=== PATIENT | female | born 1940 | race Caucasian/White ===

== ENCOUNTER 2016-09-18 13:04 | Day surgery (SDC) | payer MEDICARE ==
[~2016-09-18] VITALS: Ht 166.4 cm; Wt 75.0 kg
--- NOTE | 2016-09-18 07:29 | PCM.HPANE ---
Patient Data Surgeon Admitting Provider: Attending Provider:Bronson Albarran MD Primary Care Physician:Xin Lou PA-C Other Provider:Nila Haynesingham Anesthesia Reason for Visit Diarrhea Ht/WT & BMI Body Mass Index Allergies Coded Allergies: No Known Allergies (Unverified , 09/18/16) Medications Reported Medications Montelukast 10 Mg Sdoile38 Mg PO HS Ref 0 09/16/16 Atorvastatin (Lipitor)10 Mg Tab10 Mg PO DAILY Ref 0 09/16/16 Gabapentin 600 Mg Btdnid888 Mg PO TID Ref 0 09/16/16 Celecoxib (Celebrex)200 Mg Yoyphaf702 Mg PO BID #30 CAPSULE Ref 0 09/16/16 Dicyclomine (Bentyl)10 Mg Cjboxqj61 Mg PO QID 09/16/16 Allopurinol 100 Mg Insvqd372 Mg PO TID Ref 0 09/16/16 Acetaminophen 325 Mg Iuvdfaf301 Mg PO QID PRN For Pain 09/16/16 Stop/Bang Risk Assessment Category Category 1A: Patient has history of documented sleep apnea, and HAS NOT received any narcotic, sedative or anesthesia administration during this stay. Category 1B: Patient has history of documented sleep apnea, and HAS received any narcotic , sedative or anesthesia administration during this stay Category 2: Patient has SUSPECTED Obstructive Sleep Apnea, and HAS received any narcotic , sedative or anesthesia administration during this stay. Category 3: Patient has SUSPECTED Obstructive Sleep Apnea and HAS NOT received narcotic, sedative or anesthesia administration during this stay. Category 4: Outpatient in Procedural Areas with known sleep apnea or who screen positive for High Risk via the STOP/BANG questionnaire. Exam Exam General Appearance: Alert, Oriented X3, Cooperative, No Acute Distress HEENT/AIRWAY: MP 2 Lungs: Clear to Auscultation, Normal Air Movement Heart: Exam Unremarkable, Regular Rate/Rhythm, No Murmurs/Rubs/Gallops Plan Impression Patient chart reviewed, patient interviewed and anesthestic plan with risks, benefits, and alternatives discussed, and informed consent obtained. ASA Physical Status: ASA2 Mod Systemic Disease Anesthetic Plan: MAC Bene/Risks/Altern/Consents: Yes HP Complete Prior to Induction: Yes Angela West MD Sep 18, 2016 07:29
[~2016-09-18 13:04] MED LIST: ACET325C PO; ATRV10T PO; CELE200C PO; DICY10CA56 PO; GABA600T2 PO; Lactated Ringer's 1,000 ML IV ONE; MONT10TA23 PO; ZYL100 PO
[2016-09-18] MEDS ORDERED: Propofol 10,000 mCg/mL 20 mL Inj ONE (13:05)
[2016-09-18] MEDS ORDERED: fentaNYL-PF 50 mCg/mL 2 mL Inj ONE (13:05)
[2016-09-18 13:17] VITALS: BP 148/86; PULSE 76; RESP 15; O2SAT 98
[2016-09-18] MEDS ORDERED: Lactated Ringer's 1,000 ML IV SCH (13:58)
--- NOTE | 2016-09-18 13:58 | PCM.ANEP1 ---
Post Anesthesia Phase 1 PACU Phase 1 Assessment Vital Signs Vital Signs Date Time Temp Pulse Resp B/P Pulse Ox O2 Delivery O2 Flow Rate FiO2 09/18/16 13:17 37.1 76 15 148/86 98 Room Air Anesthetic Administered: MAC Level of Alertness: Awake, talking ALVARADO's with Equal Strength: Yes Pain: No Nausea or Vomiting: No Oxygen Delivery: Nasal Cannula Lungs: Clear to Auscultation, Normal Air Movement Angela West MD Sep 18, 2016 13:58
--- NOTE | 2016-09-18 13:58 | PCM.ANEP2 ---
Post Anesthesia Evaluation ASA/CMS Post Anesthesia VS in Patient's Normal Range?: Yes Resp Stable; Airway Patent?: Yes CV Function & Hydration Stable: Yes Mental Status Recovered?: Yes Pain control Satisfactory?: Yes N/V Control Satisfactory?: Yes Angela West MD Sep 18, 2016 13:58
[2016-09-18] MEDS ORDERED: Ondansetron 2 mg/mL 2 mL Inj IVPUSH PRN (14:00)
[2016-09-18] MEDS ORDERED: MetoCLOpramide 5 mg/mL 2 mL Inj IVPUSH PRN (14:00)
[2016-09-18 14:02] VITALS: BP 129/69; PULSE 66; RESP 14; O2SAT 98
[2016-09-18 14:09] VITALS: BP 128/82; PULSE 66; RESP 10; O2SAT 98
--- NOTE | 2016-09-18 14:31 | ENDO ---
[address] [address] ENDOSCOPY PROCEDURE PATIENT: IGOR GALVEZ : 1940 MR#: [id number] ADMIT: 09/18/2016 JOB ID: [id number] DATE OF SERVICE: 09/18/2016 TYPE OF OPERATION: Colonoscopy, status post biopsy. PREOPERATIVE DIAGNOSIS(ES): Diarrhea. POSTOPERATIVE DIAGNOSIS(ES): 1. A 2 mm cecal polyp, removed by cold biopsy forceps. 2. Severe sigmoid diverticulosis. 3. Small internal hemorrhoids. ANESTHESIA: Monitored anesthesia care. COMPLICATIONS: None. BLOOD LOSS: Minimal. DESCRIPTION OF PROCEDURE: After risks and benefits were explained to the patient, informed consent was obtained. After anesthesia administered, colonoscope was then inserted from the rectum to the terminal ileum. Mucosa carefully examined. Prep of the patient was fair. After the procedure was done, the scope was withdrawn and the procedure terminated. FINDINGS: Upon inspection of the anus, no masses, hemorrhoids, ulcers, or fissures that were seen. Throughout the entire examination, there was a 2 mm cecal polyp, removed by cold biopsy forceps. There was severe sigmoid diverticulosis and tortuous sigmoid colon. No other polyps or masses were seen. Biopsies taken from terminal ileum and random colon. Retroflexion showed small internal hemorrhoids. IMPRESSION: 1. Small internal hemorrhoids. 2. Severe sigmoid diverticulosis with tortuous sigmoid. 3. A 2 mm cecal polyp, removed by cold biopsy forceps. RECOMMENDATION: Await pathology results. Follow up in GI clinic as needed.
--- NOTE | 2016-09-23 10:19 | PATH ---
SURGICAL PATHOLOGY Attending Physician:Bronson Albarran MD CASE STATUS: Signed Out PATIENT NAME: IGOR GALVEZ PID: [id number] : 1940 DATE COLLECTED:09/18/2016 00:00 SPECIMEN: 1: Colon, Biopsy 2: Ileum, Biopsy 3: Colon, Biopsy CLINICAL HISTORY: 1).CECUM POLYP 2).TERMINAL ILEUM BIOPSY 3).RANDOM COLON BIOPSY FINAL DIAGNOSIS: 1.CECUM POLYP: TUBULAR ADENOMA. 2.TERMINAL ILEUM BIOPSY: NORMAL TERMINAL ILEUM MUCOSA. No inflammation identified. Negative for dysplasia and malignancy. 3.RANDOM COLON BIOPSY: MULTIPLE FRAGMENTS OF COLONIC MUCOSA WITH MILD CHRONIC INFLAMMATION, SEE COMMENT. Negative for dysplasia and malignancy. ICD10 code D12.0 K52.89 NOTE: The colonic mucosal biopsies in specimen 3 show mild hypercellularity of the lamina propria with increased mononuclear cells. There are also increased numbers of lymphocytes in surface and gland epithelium, associated with decreased mucin in the surface epithelial cells. No cryptitis or granulomas are identified. These histologic features are consistent with lymphocytic colitis in the appropriate clinical and endoscopic context. The differential diagnosis includes resolving infectious colitis and drug toxicity. GROSS DESCRIPTION: The specimen is received in three formalin filled containers labeled with the patient's name. 1). The specimen is labeled "cecum polyp" and consists of multiple portions of tissue which aggregate to 0.4 x 0.4 x 0.3 CM. The specimen is entirely submitted in cassette 1A. 2). The specimen is labeled "TI" and consists of a 0.3 x 0.2 x 0.2 CM portion of tissue which is entirely submitted in cassette 2A. 3). The specimen is labeled "random colon" and consists of 2 portions of tissue which aggregate to 0.3 x 0.2 x 0.2 CM. The specimen is entirely submitted in cassette 3A. 09/19/[address] [facility] MICRO DESCRIPTION: See diagnosis. ICD-9 CODES: CPT CODES: 1: 79474 2: 32190 3: 30029 Electronically Signed Out Mee Schmitt MD [facility] [address], [place] [address] Technical component performed at [facility], [facility] [address], [place], [address]
[2016-11-19] MEDS ORDERED: CETI10CA PO (11:48)
[2016-11-19] MEDS ORDERED: IPRA4AER IH (11:48)
[2016-11-19] MEDS ORDERED: ZYL100 PO (11:48)
[2016-11-19] MEDS ORDERED: TRIA10.8 NS (11:48)
[2016-11-19] MEDS ORDERED: ACET325T51 PO (11:48)
[2016-11-19] MEDS ORDERED: ATRV10T PO (11:48)
[2016-11-19] MEDS ORDERED: CA C1TAB83 PO (11:48)
[2016-11-19] MEDS ORDERED: duloxetine (11:48)
[2016-11-19] MEDS ORDERED: MONT10TA23 PO (11:48)
[2016-11-19] MEDS ORDERED: CITA40TA13 PO (11:48)
[2016-11-19] MEDS ORDERED: GABA600T2 PO (11:48)
[2016-11-19] MEDS ORDERED: CELE200C PO (11:48)
== END 2016-09-18 23:59 | disposition home or self-care (01) ==
LOC: END 13:04
PROVIDERS: ATTEND Internal Medicine Gastroenterology
DX: D12.0 Benign neoplasm of cecum (principal); K57.30 Diverticulosis of large intestine without perforation or abscess without bleeding; K64.8 Other hemorrhoids; K52.89 Other specified noninfective gastroenteritis and colitis; I10 Essential (primary) hypertension; G47.33 Obstructive sleep apnea (adult) (pediatric); J45.909 Unspecified asthma, uncomplicated; K21.9 Gastro-esophageal reflux disease without esophagitis; Z85.828 Personal history of other malignant neoplasm of skin; Z86.010 Personal history of colon polyps; Z87.440 Personal history of urinary (tract) infections
CPT/HCPCS: 45380; 88305; J2250; J3010; J7120

== ENCOUNTER 2017-02-05 08:32 | Day surgery (SDC) | payer MEDICARE ==
[~2017-02-05] VITALS: Ht 167.6 cm; Wt 78.4 kg
[2017-02-05] VITALS (11 sets, daily range): BP systolic 114–155; BP diastolic 64–76; PULSE 68–94; RESP 13–19; O2SAT 91–98
[~2017-02-05 08:32] MED LIST changes: -ACET325C PO; +Bupivacaine Liposome 1.3% 20 mL Inj INFILTRATE ONE; +Bupivacaine Liposome 1.3% 20 mL Inj INFILTRATE SCH; +CA C1TAB83 PO; +CETI10CA PO; +CITA40TA13 PO; +CeFAZolin Inj 2 GM in IV Premix 1 EACH IV ONE; +CeFAZolin Inj 2 GM in IV Premix 1 EACH IV SCH; +CeFAZolin Inj 2,000 MG in Dextrose 5%-Pha MIX 50 ML IV SCH; -DICY10CA56 PO; +IPRA4AER IH; +LACT1CAP67 PO; -Lactated Ringer's 1,000 ML IV ONE; +TRIA10.8 NS; +duloxetine
[2017-02-05] MEDS ORDERED: MetoCLOpramide 5 mg/mL 2 mL Inj ONE (08:33)
[2017-02-05] MEDS ORDERED: Dexamethasone 4 mg/mL Inj ONE (08:33)
[2017-02-05] MEDS ORDERED: HYDROmorphone 1 mg/mL Inj ONE (08:33)
[2017-02-05] MEDS ORDERED: Ondansetron 2 mg/mL 2 mL Inj ONE (08:33)
[2017-02-05] MEDS ORDERED: CeFAZolin Inj 2 gm / 50mL D5W IV ONE (08:54)
[2017-02-05] MEDS: Vancomycin Inj 1,000 MG in IV Premix 1 EACH IV SCH ×2 (09:44→09:50)
[2017-02-05] MEDS: Lactated Ringer's 1,000 ML IV SCH ×2 (09:44→11:16)
--- NOTE | 2017-02-05 10:58 | PCM.HPANE ---
Patient Data Surgeon Admitting Provider: Attending Provider:Fabricio Hathaway MD Primary Care Physician:Xin Lou PA-C Other Provider:Meghann Haynes Anesthesia Reason for Visit Right Knee Arthritis Ht/WT & BMI Height (Feet): 5 Height (Inches): 6.00 Weight (Kilograms): 78.410 Body Mass Index 27.00 Allergies Uncoded Allergies: LACTOSE INTOLERANT (Allergy, Unknown, 11/19/16) Past Anesthesia History Anesthesia History: Denies:: Abnormal Airway, Anesthesia Reactions, Difficult Intubation, Fam Anesthesia Reaction, Fam Malignant Hypertherm, Malignant Hyperthermia Diabetes History Hx Diabetes?: No MRSA MRSA: No Medications Hypertension Medication: No Home Meds Incl Beta Cruz: No Reported Medications Lactobacillus Combination No.4 (Probiotic)1 Each Capsule1 Each PO 02/03/17 Montelukast 10 Mg Tajwwg58 Mg PO HS Ref 0 02/03/17 Triamcinolone Acetonide (Nasacort)10.8 Ml Spray10.8 Ml NS PRN For Congestion 11/19/16 Atorvastatin (Lipitor)10 Mg Tab10 Mg PO DAILY Ref 0 11/19/16 Gabapentin 600 Mg Xmbxdk398 Mg PO TID Ref 0 11/19/16 [duloxetine] 30 No Conflict CheckUnknown Dose DAILY 11/19/16 Albuterol/Ipratropium (Combivent Respimat Inhal Sloan)120 Spr/4 Gm Inhaler1 Puff IH QID #1 INH Ref 0 11/19/16 Citalopram 40 Mg Wpzpxx41 Mg PO DAILY 30 Days Ref 0 11/19/16 Celecoxib (Celebrex)200 Mg Incizmv456 Mg PO BID #30 CAPSULE Ref 0 11/19/16 Ca Carbonate/Vitamin D3/Vit K (Calcium + D Soft Chewable Tab)1 Each Tab.chew1 Each PO DAILY 11/19/16 Allopurinol 100 Mg Ttquho560 Mg PO TID Ref 0 11/19/16 Cetirizine HCl (Zyrtec)10 Mg Lvkcgix56 Mg PO HS #30 CAPSULE Ref 0 11/19/16 Discontinued Reported Medications Montelukast 10 Mg Dhxckf97 Mg PO HS Ref 0 11/19/16 Acetaminophen 325 Mg Ggbczr724 Mg PO Q4H PRN For Pain Ref 0 11/19/16 History History of ENT Problems?: No HEENT History: Positive for:: Cataracts (bilateral surgery ) Hearing Problem Denies:: Abnormal Airway Difficult Intubation Dysphagia Glaucoma Sinus Problem TMJ Denture Type: None Teeth Condition: Within Normal Limits Hx of Heart Problems?: No Cardiovascular History: Positive for:: Hypertension Denies:: AICD Abdominal Aortic Aneurism Atrial Fibrillation Cardiac Surgery Chest Pain Congestive Heart Failure Coronary Artery Disease Edema Heart Murmur Irregular Heartbeat Pacemaker Peripheral Vascular Rheumatic Fever Thrombophlebitis Valvular Heart Disease Hx of Respiratory Problem?: Yes Respiratory History: Positive for:: Asthma (mild) Use of C-PAP Machine Use of Inhalers / NEBS (COMBIVENT) Denies:: COPD Chest Surgery Cough Hemoptysis Oxygen Administration Pneumonia Pulmonary Embolism Tuberculosis Hx Neurologic Problems?: Yes Neurological History: Denies:: Alzheimer's Disease CVA Dementia Dizziness Headaches Multiple Sclerosis Parkinson's Disease Seizures TIA Other Neurological Pertinent: neuropathy- sciatica Hx of GI Problems?: Yes Other GI Pertinent History: chronic diarrhea - seeking infectious disease referral Hx of Problems?: No Genitourinary History: Denies:: HX of Hemodialysis Kidney Stones Urinary Tract Infection HX of Peritoneal Dialysis: No Female Hx: Positive for:: Problems with Breasts? (left lumpectomy- benign) Denies:: Currently Endometriosis Pelvic Inflammatory Skin History: Denies:: History Skin Disorders? Pressure Ulcers Hx Musculoskeletal Problems?: Yes Musculoskeletal History: Positive for:: Back Injury (sciatica - lt leg) Joint Replacement (left knee replacements) Musculoskeletal Trauma (right knee current admission problem) Denies:: Degenerative Joint Fibromyalgia Myasthenia Gravis Osteoarthritis Rheumatoid Arthritis Systemic Lupus Hx of Psycho/Social Problems?: Yes Psycho Social History: Positive for:: Anxiety Hx Depression Denies:: Bipolar Disorder Suicide Attempt Hx Surgeries?: Yes (LUMPECTOMY, PARTIAL L KNEE, HIATAL HERNIA) Hx Any Other Health Problems?: Yes Other History: Positive for:: Cancer (BCC. SCC skin under control) Hospitalization (2009) Denies:: Endocrine Disease Thyroid Disease History Blood Transfusions: Positive for:: Accept Blood Products? Blood Transfuse Reaction (picked up some markers for disease- hep a post transfusion) Blood Transfusions (45 years ago after childbirth) Hx Diabetes: No Hx Alcohol Use: YesAlcoholic Drinks Per Day: 2-3 glasses weeklyHx Substance Use: No Smoking Status: Former Smoker Have You Smoked inLast 12 mo: No Stop/Bang Treated for Sleep Apnea?: Yes Do You Have a CPAP Machine?: Yes S-Snoring: Do You Snore Loudly: Yes T-Tired: feel tired, fatigued: No O-Obsered: Observed not breath: Yes P-Blood Pressure: treated: Yes B- Body Mass Index > 35 kg/m2: No A- Age over 50: Yes N- Neck Large Circumference: No G- Gender Male: No JAME Total Score: 4 JAME Risk Assessment: High Risk, =/>3 Yes Risk Assessment Category Category 1A: Patient has history of documented sleep apnea, and HAS NOT received any narcotic, sedative or anesthesia administration during this stay. Category 1B: Patient has history of documented sleep apnea, and HAS received any narcotic , sedative or anesthesia administration during this stay Category 2: Patient has SUSPECTED Obstructive Sleep Apnea, and HAS received any narcotic , sedative or anesthesia administration during this stay. Category 3: Patient has SUSPECTED Obstructive Sleep Apnea and HAS NOT received narcotic, sedative or anesthesia administration during this stay. Category 4: Outpatient in Procedural Areas with known sleep apnea or who screen positive for High Risk via the STOP/BANG questionnaire. Exam Exam Vital Signs Vital Signs Date Time Temp Pulse Resp B/P Pulse Ox O2 Delivery O2 Flow Rate FiO2 02/05/17 09:48 36.5 71 16 119/64 97 Room Air General Appearance: Oriented X3 HEENT/AIRWAY: MP 2 Lungs: Normal Air Movement Heart: Regular Rate/Rhythm Meds/Labs/Diagnostics Admission Meds Current Medications Lactated Ringer's (Lr) 1,000 ml @ 120 mls/hr Q8H20M IV Last administered on t 09:44; Start 02/05/17 at 05:00; Stop 02/05/17 at 13:19 Plan Impression Patient chart reviewed, patient interviewed and anesthestic plan with risks, benefits, and alternatives discussed, and informed consent obtained. ASA Physical Status: ASA2 Mod Systemic Disease Anesthetic Plan: GA Bene/Risks/Altern/Consents: Yes HP Complete Prior to Induction: Yes Alden Fitzpatrick MD Feb 05, 2017 10:58
[2017-02-05] MEDS ORDERED: Lactated Ringer's 1,000 ML IV SCH (10:59)
[2017-02-05] MEDS ORDERED: Lactated Ringer's 500 ML IV PRN (10:59)
[2017-02-05] MEDS ORDERED: EPHEDrine Sulfate 50 mg/mL Inj IVPUSH PRN (11:00)
[2017-02-05] MEDS ORDERED: Dexamethasone 4 mg/mL Inj IVPUSH PRN (11:00)
[2017-02-05] MEDS ORDERED: MetoCLOpramide 5 mg/mL 2 mL Inj IVPUSH PRN (11:00)
[2017-02-05] MEDS ORDERED: fentaNYL-PF 50 mCg/mL 2 mL Inj IVPUSH PRN (11:00)
[2017-02-05] MEDS ORDERED: Phenylephrine 10,000 mCg/mL Inj IVPUSH PRN (11:00)
[2017-02-05] MEDS ORDERED: Ondansetron 2 mg/mL 2 mL Inj IVPUSH PRN (11:00)
[2017-02-05] MEDS ORDERED: Bupivacaine-MPF 0.25%/EPI 30 mL Inj INFILTRATE ONE (11:44)
[2017-02-05] MEDS ORDERED: Gentamicin 40 mg/mL 2 mL Inj IRRIGATION ONE (11:44)
[2017-02-05] MEDS ORDERED: oxyCODONE-Acetamin 5-325 mg Tablet PO PRN (12:40)
[2017-02-05] MEDS ORDERED: hydrOXYzine Pamoate 25 mg Capsule PO PRN (12:40)
[2017-02-05] MEDS ORDERED: Ketorolac 15 mg/mL Inj IVPUSH ONE (12:40)
[2017-02-05] MEDS: HYDROmorphone 1 mg/mL Inj IVPUSH PRN ×2 (13:00→13:11)
--- NOTE | 2017-02-05 13:09 | OP ---
[address] [address] OPERATIVE REPORT PATIENT: IGOR GALVEZ : 1940 MR#: [id number] ADMIT: 02/05/2017 JOB ID: [id number] DATE OF SURGERY: 02/05/2017 PREOPERATIVE DIAGNOSIS(ES): Severe arthritis, medial compartment right knee. POSTOPERATIVE DIAGNOSIS(ES): Severe arthritis, medial compartment right knee. PROCEDURE: Unicompartmental knee arthroplasty. SURGEON: Fabricio Hathaway MD TENTMAKER: Liu Beckett PA-C. Mobile Home Set Up Person required due to the complexity of the operation. INDICATIONS: Progressive disability uncontrolled by conservative treatment techniques. The patient understands and accepts the potential for risks and complications which includes progressive arthritis in the contralateral compartment. PROCEDURE: The patient was prepped draped in the usual sterile fashion. Anteromedial approach made. Dissection carried down. Frontal bossing and patellar osteophyte removed. The tibial guide was assembled and the standard tibial cut was made. The spacer block 8 mm was utilized to make a distal femoral cut which measured 6 mm in depth. The femur was sized to a number three. Chamfer block fixed in appropriate position. Rotation, drill holes, and chamfer cuts were made. All meniscal tissue and osteophytes were removed from the knee and the tibia was sized to a D, provisionally fixed, with drill stabilization holes made. A trial reduction was performed and a 9 mm polyethylene produced excellent alignment, soft tissue tracking, and tension. Pressurized lavage was followed by pressurized cementation. Excess cement was removed during the curing process. Final construct was assembled. Tourniquet was let down. Hemostasis was achieved. A deep Hemovac drain was left. The knee was closed with 2-0 Quill deep followed by a 2-0 Vicryl, a 3-0, and a 4-0 intracuticular stitch. She tolerated the procedure well. There were no complications.
--- NOTE | 2017-02-05 13:25 | DRSVH ---
PROCEDURE: X-RAY RIGHT KNEE, ONE OR TWO VIEWS ([id number]) INDICATIONS: POST PROTHESIS ALIGNMENT TECHNIQUE: 2 view(s) of the knee acquired. COMPARISON: None. FINDINGS: Bones: Patient is status post knee joint medial unicompartmental arthroplasty. Hardware components are in expected positions. Visualized bony structures are intact. Soft tissues: Overlying postoperative changes are noted. IMPRESSION: Expected postoperative appearance Dictated by: Raman Pace M.D. on 02/05/2017 at 13:22 Approved by: Raman Pace M.D. on 02/05/2017 at 13:23
--- NOTE | 2017-02-05 13:36 | PCM.ANEP1 ---
Post Anesthesia PACU Phase 1 Assessment Vital Signs Vital Signs Date Time Temp Pulse Resp B/P Pulse Ox O2 Delivery O2 Flow Rate FiO2 02/05/17 13:25 84 14 138/67 95 Nasal Cannula 2 02/05/17 13:15 84 13 132/76 91 Room Air 02/05/17 13:05 37.4 85 14 136/76 92 Room Air 02/05/17 12:55 84 14 155/75 94 Room Air 02/05/17 12:50 86 14 155/75 96 Room Air 02/05/17 12:45 85 18 138/74 96 Room Air 02/05/17 12:43 37.3 87 16 151/70 96 Room Air 02/05/17 09:48 36.5 71 16 119/64 97 Room Air Anesthetic Administered: GA Level of Alertness: Awake, talking Pain: No Nausea or Vomiting: No CV Function & Hydration Stable: Yes Airway Device: Lungs: Normal Air Movement PACU Phase 2 Assessment Patient Instructions Provided: N/A Alden Fitzpatrick MD Feb 05, 2017 13:36
== END 2017-02-05 23:59 | disposition home or self-care (01) ==
LOC: SAS 08:32
PROVIDERS: ATTEND Orthopaedic Surgery
DX: M17.11 Unilateral primary osteoarthritis, right knee (principal); I10 Essential (primary) hypertension; J45.909 Unspecified asthma, uncomplicated; F32.9 Major depressive disorder, single episode, unspecified; E78.5 Hyperlipidemia, unspecified
CPT/HCPCS: 27446; 73560; C1713; C1776; J0690; J1100; J1170; J1580; J1885; J2405; J2765; J3010; J3370; J7120

== ENCOUNTER 2017-03-04 11:05 | Day surgery (SDC) | payer MEDICARE ==
[2017-03-04] VITALS (8 sets, daily range): BP systolic 123–140; BP diastolic 63–101; PULSE 73–94; RESP 14–17; O2SAT 95–100
[~2017-03-04] VITALS: Ht 167.6 cm; Wt 79.3 kg
[~2017-03-04 11:05] MED LIST changes: -Bupivacaine Liposome 1.3% 20 mL Inj INFILTRATE SCH; +CeFAZolin 2 Gm/50 mL D5W IV Premix IV ONE; -CeFAZolin Inj 2 GM in IV Premix 1 EACH IV ONE; -CeFAZolin Inj 2 GM in IV Premix 1 EACH IV SCH; -CeFAZolin Inj 2,000 MG in Dextrose 5%-Pha MIX 50 ML IV SCH; +Gentamicin 40 mg/mL 2 mL Inj IV ONE; +Hip/Knee Infiltration Cocktail INFILTRATE ONE
[2017-03-04] MEDS ORDERED: Rocuronium 10 mg/mL 5 mL Inj ONE (11:06)
[2017-03-04] MEDS ORDERED: Phenylephrine/NS 100 mCg/mL 10 mL Syringe IVPUSH ONE (11:06)
[2017-03-04] MEDS ORDERED: Succinylcholine Chloride 20 mg/mL 5 mL Inj ONE (11:06)
[2017-03-04] MEDS ORDERED: EPHEDrine/NS 5 mg/mL 5 mL Syringe ONE (11:06)
[2017-03-04] MEDS ORDERED: Propofol 10,000 mCg/mL 20 mL Inj ONE (11:06)
[2017-03-04] MEDS ORDERED: fentaNYL-PF 50 mCg/mL 2 mL Inj ONE (11:06)
[2017-03-04] MEDS ORDERED: Ondansetron 2 mg/mL 2 mL Inj ONE (11:06)
[2017-03-04] MEDS ORDERED: Dexamethasone 4 mg/mL Inj ONE (11:06)
[2017-03-04] MEDS ORDERED: CeFAZolin 2 Gm/50 mL D5W Duplex Bag IV ONE (11:19)
[2017-03-04] MEDS: Lactated Ringer's 1,000 ML IV SCH ×2 (11:57→13:00)
[2017-03-04] MEDS ORDERED: CEPH500C PO (12:16)
[2017-03-04] MEDS ORDERED: DULO20CA18 PO (12:17)
--- NOTE | 2017-03-04 12:43 | PCM.ORTHOP ---
Orthopedic Operative Report Date of Service: Mar 04, 2017 Pre Operative Diagnosis Left shoulder degenerative joint disease Post Operative Diagnosis Left shoulder degenerative joint disease Procedure Left total shoulder arthroplasty, open biceps tenodesis Surgeon Surgeon: Serafin Gibbs MD Assistants:Anthony Nolasco Indication for Procedure Left shoulder degenerative joint disease Findings Per dictation Details of Procedure Implant: Arthrex univers vaultlock size small glenoid, stem size 7 mm with 48/ 19 head The risks, benefits, indications and alternatives, including non-operative management of open reduction and plating were discussed with the patient in detail. The patient understood this operation would be strictly for pain control and would not necessarily improve the function of the arm. The patient voiced understanding of the risks and agreed to proceed. All questions were answered to the patients satisfaction. Verbal and written consent were obtained. Description of Operation: The patient was brought to the operating room. Time out was performed in the presence of the Orthopedic and the drawing frame tender. Preoperative antibiotics were given. Interscalene block performed by anesthesia. General anesthesia was administered. The patient was placed in a beachchair position. The right arm was prepped and draped in the usual sterile fashion. A standard deltopectoral approach was made. Blunt dissection was carried through the interval to expose the subscapularis muscle after retracting the conjoined tendon medially. Care was taken to not damage nearby neurovascular structures. The anterior humeral circumflex vessels were ligated. [place]ulton scissors were used to cut through the rotator interval to expose the anatomic neck of the humerus. The subscapularis tendon was tagged using # 1 Ethibond sutures. The subscapularis tendon was cut longitudinally using a Bovie. The shoulder was slowly externally rotated while peeling the inferior capsule off of the humeral neck until the shoulder was dislocated and the humeral head was exposed. There were some small loose bodies in the subscapularis recess which were removed. There was extensive erosion and flattening of the humeral head. Extensive osteophytes were present over the periphery of the humeral head. Moderate dysplasia of the head was seen as evidenced by the increased inclination of the head. The subscapularis was tucked medially. The osteophytes around the humeral head were removed using an osteotome and mallet to expose the anatomic neck. The supraspinatus and infraspinatus were found to be intact and attached to the greater tuberosity. A neck cutting guide was placed and then the cut was made with 30 degrees of retroversion using a saw. The neck was sequentially broached to the proper fit. The head trial were placed until the proper fit was obtained. A head protector sleeve was placed on the cut surface. Using a posterior glenoid retractor the glenoid was exposed. Circumferential exposure of the glenoid from the 1 o'clock position to the 7 o'clock position was done using a Bovie taking care to stay close to the bone. The glenoid was sized and then reamed appropriately. Peg holes were drilled along with the center hole. A trial implant was placed which fit well. After removing the trial, the wound was irrigated. The peg holes were filled with manually pressurized cement and the above mentioned glenoid component was impacted until an excellent fit was obtained. Attention was then taken to the humeral head. The humeral head trial was placed the the shoulder stability was verified after reduction and found to be appropriate. The trial head and stem were removed and proper inclination was noted. Multiple #2 Fiber- wire sutures were placed in the lateral subscapularis stump on the lesser tuberosity and then through the rim of the humeral neck. The implant was assembled on the back table. The wound was irrigated. The humeral implant was impacted into the humerus until the proper fit was obtained. The shoulder was reduced and excellent stability was tested and verified. The subscapularis was then repaired using the aforementioned Fiber-wire sutures and also an 0-Vicryl suture. A proximal biceps tenotomy was performed after a distal tenodesis was performed to the pec major.. The rotator interval was closed. Hemostasis was achieved. The wound was irrigated with copious saline. Local cocktail was used which included bupivicaine. Gentamicin was injected into the joint. IV transexamic acid was used preop and intraop. The wound was then closed in layers , dressed appropriately and the shoulder was placed in an immobilizer. The patient was extubated without difficulty and transferred to the PACU in stable condition. Nonweightbearing to affected upper extremity. Please leave sling on at all times. You may remove sling 3 times a day to move the elbow wrist and fingers. Do not move your shoulder. PROM only, IR to body, ER to 0 degrees, FF to 90 degrees, ABD to 0 degrees. Keep your arm at neutral, NO external rotation of the arm, no resisted IR of the arm. Please keep the affected extremity elevated when possible. You may use ice and/or heat as needed for comfort. Follow-up in 2 weeks with me with 2-view xrays and for suture removal and Steri -Strip application. Follow-up with me at 6 weeks. You will have pain medications , medication for constipation and aspirin 81 qdaily X 2 weeks. Grafts, Implants: Implants-See Implant Record Complications There were no periprocedural complications identified. Condition Stable Anesthetic Administered: GA Catheters: None Output, Estimated Blood Loss: 150 Blood Admin during surgery: No Surgical Cast or Splint: Shoulder Immobilizer, Knee Immobilizer Surgical Specimen Removed: No Specimen sent to Pathology: No copies to: Serafin Gibbs MD, Christopher L MD Mar 04, 2017 12:43
--- NOTE | 2017-03-04 12:47 | PCM.HPANE ---
Patient Data Surgeon Admitting Provider: Attending Provider:Serafin Gibbs MD Primary Care Physician:Xin Lou PA-C Other Provider:Meghann Haynes Anesthesia Reason for Visit Left Shoulder Arthritis Ht/WT & BMI Height (Feet): 5 Height (Inches): 6 Weight (Kilograms): 79.3 Body Mass Index 28.00 Allergies Coded Allergies: lactose (Verified Allergy, Unknown, 03/04/17) Uncoded Allergies: LACTOSE INTOLERANT (Allergy, Unknown, 11/19/16) Past Anesthesia History Anesthesia History: Denies:: Abnormal Airway, Anesthesia Reactions, Difficult Intubation, Fam Anesthesia Reaction, Fam Malignant Hypertherm, Malignant Hyperthermia Diabetes History Hx Diabetes?: No MRSA MRSA: No Medications Home Meds Incl Beta Cruz: No Reported Medications Duloxetine Unknown Strength Capsule.drUnknown Dose PO DAILY 03/04/17 Cephalexin 500 Mg [id number] Mg PO BID #40 CAPSULE Ref 0 03/04/17 Lactobacillus Combination No.4 (Probiotic)1 Each Capsule1 Each PO 02/03/17 Montelukast 10 Mg Mntacr89 Mg PO HS Ref 0 02/03/17 Triamcinolone Acetonide (Nasacort)10.8 Ml Spray10.8 Ml NS PRN For Congestion 11/19/16 Atorvastatin (Lipitor)10 Mg Tab10 Mg PO DAILY Ref 0 11/19/16 Gabapentin 600 Mg Eudmsr394 Mg PO DAILY 11/19/16 Albuterol/Ipratropium (Combivent Respimat Inhal [place])120 Spr/4 Gm Inhaler1 Puff IH QID #1 INH Ref 0 11/19/16 Citalopram 40 Mg Taviho29 Mg PO DAILY 30 Days Ref 0 11/19/16 Celecoxib (Celebrex)200 Mg Uvfqppr469 Mg PO BID #30 CAPSULE Ref 0 11/19/16 Ca Carbonate/Vitamin D3/Vit K (Calcium + D Soft Chewable Tab)1 Each Tab.chew1 Each PO DAILY 11/19/16 Allopurinol 100 Mg Zpatfu464 Mg PO TID Ref 0 11/19/16 Cetirizine HCl (Zyrtec)10 Mg Mbpbtkh35 Mg PO HS #30 CAPSULE Ref 0 11/19/16 Discontinued Reported Medications [duloxetine] 30 No Conflict CheckUnknown Dose DAILY 11/19/16 History History of ENT Problems?: No HEENT History: Positive for:: Cataracts (bilateral surgery ) Hearing Problem Denies:: Abnormal Airway Difficult Intubation Dysphagia Sinus Problem TMJ Denture Type: None Teeth Condition: Within Normal Limits Hx of Heart Problems?: No Cardiovascular History: Positive for:: Hypertension Denies:: AICD Abdominal Aortic Aneurism Atrial Fibrillation Cardiac Surgery Chest Pain Congestive Heart Failure Edema Heart Murmur Irregular Heartbeat Pacemaker Rheumatic Fever Thrombophlebitis Valvular Heart Disease Hx of Respiratory Problem?: Yes Respiratory History: Positive for:: Asthma (mild) Use of C-PAP Machine Denies:: COPD Chest Surgery Cough Hemoptysis Oxygen Administration Pneumonia Pulmonary Embolism Tuberculosis Hx Neurologic Problems?: Yes Neurological History: Denies:: Alzheimer's Disease CVA Dementia Dizziness Headaches Multiple Sclerosis Parkinson's Disease Seizures Hx of GI Problems?: Yes Hx of Problems?: No Genitourinary History: Denies:: HX of Hemodialysis Kidney Stones Urinary Tract Infection HX of Peritoneal Dialysis: No Female Hx: Positive for:: Problems with Breasts? (left lumpectomy- benign) Denies:: Currently Endometriosis Pelvic Inflammatory Skin History: Denies:: History Skin Disorders? Pressure Ulcers Hx Musculoskeletal Problems?: Yes Musculoskeletal History: Positive for:: Back Injury (sciatica - lt leg) Joint Replacement (left knee replacements, right knee done 02/05/17) Musculoskeletal Trauma (left shoulder current admission problem) Denies:: Degenerative Joint Systemic Lupus Hx of Psycho/Social Problems?: Yes Psycho Social History: Positive for:: Anxiety Hx Depression Denies:: Bipolar Disorder Suicide Attempt Hx Surgeries?: Yes (LUMPECTOMY, PARTIAL L KNEE, HIATAL HERNIA) Hx Any Other Health Problems?: Yes Other History: Positive for:: Cancer (BCC. SCC skin under control) Hospitalization (2009) Denies:: Endocrine Disease Thyroid Disease History Blood Transfusions: Positive for:: Blood Transfuse Reaction (picked up some markers for disease- hep a post transfusion) Blood Transfusions (45 years ago after childbirth) Hx Diabetes: No Hx Alcohol Use: YesHx Substance Use: No Smoking Status: Former Smoker Have You Smoked inLast 12 mo: No Stop/Bang S-Snoring: Do You Snore Loudly: No T-Tired: feel tired, fatigued: No O-Obsered: Observed not breath: No P-Blood Pressure: treated: No B- Body Mass Index > 35 kg/m2: No A- Age over 50: Yes N- Neck Large Circumference: No G- Gender Male: No JAME Total Score: 1 Risk Assessment Category Category 1A: Patient has history of documented sleep apnea, and HAS NOT received any narcotic, sedative or anesthesia administration during this stay. Category 1B: Patient has history of documented sleep apnea, and HAS received any narcotic , sedative or anesthesia administration during this stay Category 2: Patient has SUSPECTED Obstructive Sleep Apnea, and HAS received any narcotic , sedative or anesthesia administration during this stay. Category 3: Patient has SUSPECTED Obstructive Sleep Apnea and HAS NOT received narcotic, sedative or anesthesia administration during this stay. Category 4: Outpatient in Procedural Areas with known sleep apnea or who screen positive for High Risk via the STOP/BANG questionnaire. Exam Exam Vital Signs Vital Signs Date Time Temp Pulse Resp B/P Pulse Ox O2 Delivery O2 Flow Rate FiO2 03/04/17 11:53 CPAP/BIPAP 03/04/17 11:27 36.2 73 16 137/72 95 Room Air General Appearance: Alert, Oriented X3 HEENT/AIRWAY: MP 2, Neck Movement (FROM) Lungs: Clear to Auscultation, Clear to Percussion Heart: Exam Unremarkable, Regular Rate/Rhythm Meds/Labs/Diagnostics Admission Meds Current Medications Lactated Ringer's (Lr) 1,000 ml @ 120 mls/hr Q8H20M IV Last administered on t 11:57; Start 03/04/17 at 05:00; Stop 03/04/17 at 13:19 Plan Impression Patient chart reviewed, patient interviewed and anesthestic plan with risks, benefits, and alternatives discussed, and informed consent obtained. ASA Physical Status: ASA2 Mod Systemic Disease Anesthetic Plan: GA Bene/Risks/Altern/Consents: Yes HP Complete Prior to Induction: Yes Bryan Weiner MD Mar 04, 2017 12:47
[2017-03-04] MEDS ORDERED: Tranexamic Acid 100 mg/mL 10 mL Inj ONE (13:01)
[2017-03-04] MEDS ORDERED: 0.9% Sodium Chloride 200 ML ONE (13:02)
[2017-03-04] MEDS ORDERED: Bupivacaine Liposome 1.3% 20 mL Inj ONE (13:02)
[2017-03-04] MEDS ORDERED: EPHEDrine Sulfate 50 mg/mL Inj IVPUSH PRN (14:10)
[2017-03-04] MEDS ORDERED: Labetalol 5 mg/mL 4 mL Inj IV PRN (14:10)
[2017-03-04] MEDS ORDERED: Atropine 0.4 mg/mL Inj IVPUSH PRN (14:10)
[2017-03-04] MEDS ORDERED: Lactated Ringer's 1,000 ML IV SCH (14:10)
[2017-03-04] MEDS ORDERED: fentaNYL-PF 50 mCg/mL 2 mL Inj IVPUSH PRN (14:10)
[2017-03-04] MEDS ORDERED: Lactated Ringer's 500 ML IV PRN (14:10)
[2017-03-04] MEDS ORDERED: HYDROmorphone 1 mg/mL Inj IVPUSH PRN (14:10)
[2017-03-04] MEDS ORDERED: Ondansetron 2 mg/mL 2 mL Inj IVPUSH PRN (14:10)
[2017-03-04] MEDS ORDERED: MetoCLOpramide 5 mg/mL 2 mL Inj IVPUSH PRN (14:10)
[2017-03-04] MEDS ORDERED: Phenylephrine 10,000 mCg/mL Inj IVPUSH PRN (14:10)
[2017-03-04] MEDS ORDERED: Bacitracin 50,000 unit Inj IRRIGATION ONE (14:24)
[2017-03-04] MEDS ORDERED: Bupivacaine Liposome 1.3% 20 mL Inj INFILTRATE ONE (14:25)
[2017-03-04] MEDS ORDERED: Gentamicin 40 mg/mL 2 mL Inj IRRIGATION ONE (14:32)
[2017-03-04] MEDS ORDERED: Ketorolac 15 mg/mL Inj IVPUSH ONE (15:40)
[2017-03-04] MEDS ORDERED: HYDROcodone-APAP 5-325 mg Tablet PO PRN (15:40)
--- NOTE | 2017-03-04 15:59 | PCM.ANEP1 ---
Post Anesthesia PACU Phase 1 Assessment Vital Signs Vital Signs Date Time Temp Pulse Resp B/P Pulse Ox O2 Delivery O2 Flow Rate FiO2 03/04/17 11:53 CPAP/BIPAP 03/04/17 11:27 36.2 73 16 137/72 95 Room Air Anesthetic Administered: GA Level of Alertness: Awake, talking ALVARADO's with Equal Strength: No (Interscalene block) Pain: No Nausea or Vomiting: No CV Function & Hydration Stable: Yes Airway Device: Oxygen Delivery: Simple Mask Lungs: Clear to Auscultation, Clear to Percussion PACU Phase 2 Assessment Complications: No Follow up Care: No Patient Instructions Provided: N/A Comments See anesth record for PACU VS. PACU VSS Bryan Weiner MD Mar 04, 2017 15:59
--- NOTE | 2017-03-04 16:50 | DRSVH ---
PROCEDURE: X-RAY LEFT SHOULDER, MINIMUM TWO VIEWS ([id number]) INDICATIONS: left shoulder s/p TSA TECHNIQUE: 2 views of the shoulder were acquired. COMPARISON: None. FINDINGS: Bones: Postsurgical changes compatible with left shoulder arthroplasty noted. No fractures or disloc ations. No suspicious bony lesions. Visualized ribs appear intact. Soft tissues: No suspicious soft tissue calcifications. IMPRESSION: Expected postsurgical change for left shoulder total arthroplasty. Dictated by: Kristine Jaimes MD, PhD on 03/04/2017 at 16:48 Approved by: Kristine Jaimes MD, PhD on 03/04/2017 at 16:49
== END 2017-03-04 23:59 | disposition home or self-care (01) ==
LOC: SAS 11:05
PROVIDERS: ATTEND Orthopaedic Surgery
DX: M19.012 Primary osteoarthritis, left shoulder (principal); I10 Essential (primary) hypertension; E78.5 Hyperlipidemia, unspecified; K57.30 Diverticulosis of large intestine without perforation or abscess without bleeding; K21.9 Gastro-esophageal reflux disease without esophagitis; J45.909 Unspecified asthma, uncomplicated; F32.9 Major depressive disorder, single episode, unspecified; Z87.440 Personal history of urinary (tract) infections; Z96.653 Presence of artificial knee joint, bilateral; Z87.891 Personal history of nicotine dependence; Z85.828 Personal history of other malignant neoplasm of skin
CPT/HCPCS: 23472; 73030; 76942; C1776; J0131; J0330; J0690; J1100; J1580; J2370; J2405; J2704; J3010; J7120